=== PATIENT | female | born 1965 | race Caucasian/White ===

== ENCOUNTER 2016-07-31 06:04 | Day surgery (SDC) | payer BC ==
[~2016-07-31] VITALS: Ht 160 cm; Wt 62.1 kg
[2016-07-31] MEDS ORDERED: ceFAZolin 1GM/50ML D5W 50 ML IV ONE (06:38)
[2016-07-31] MEDS ORDERED: ONDANSETRON HCL 4 MG/2 ML VIAL ONE (07:00)
[2016-07-31] MEDS ORDERED: MIDAZOLAM HCL 1MG/1ML-2 ML VIAL ONE (07:00)
[2016-07-31] MEDS ORDERED: SODIUM CHLORIDE LOCK 20 ML ONE (07:00)
[2016-07-31] MEDS ORDERED: fentaNYL CITRATE 100 MCG/2 ML VL ONE (07:00)
[2016-07-31] MEDS ORDERED: PROPOFOL 10 MG/ML 20 ML IV ONE (07:00)
[2016-07-31] MEDS ORDERED: LIDOCAINE HCL 2 %PF INJ 10ML AMP IJ ONE (07:00)
[2016-07-31] MEDS ORDERED: KETAMINE HCL 1 ML ONE (07:40)
[2016-07-31] MEDS ORDERED: KETOROLAC TROMETH 30 MG/ML 1ML VIAL IV ONE (08:30)
[2016-07-31] MEDS ORDERED: METOCLOPRAMIDE HCL 5MG/ml INJ 2ml VIAL IV ONE (08:30)
[2016-07-31] MEDS: HYDROmorphone HCL 2 MG/ML VL IV PRN ×2 (08:40→08:50)
[2016-07-31 09:24] VITALS: BP 152/76
== END 2016-07-31 09:24 | disposition home or self-care (01) ==
LOC: SUR 06:04
PROVIDERS: ATTEND Urology
DX: N20.1 Calculus of ureter (principal); N20.0 Calculus of kidney; I10 Essential (primary) hypertension; E78.00 Pure hypercholesterolemia, unspecified; J45.909 Unspecified asthma, uncomplicated; G43.909 Migraine, unspecified, not intractable, without status migrainosus; Z90.710 Acquired absence of both cervix and uterus
CPT/HCPCS: 50590; 52332; 74000; 76000; 88300; J0690; J1170; J2250; J2405; J2704; J3010